=== PATIENT | female | born 1960 | race Caucasian/White ===

== ENCOUNTER 2016-05-07 06:23 | Day surgery (SDC) | payer BC ==
[2016-05-05 16:44] LABS: Basophils # (auto) 0 uL; Basophils % (auto) 0.3 % (0.0-2.0); Eosinophils # (auto) 0.2 uL; Eosinophils % (auto) 2.4 % (0.0-7.0); Hematocrit 38.2 % (36.0-46.0); Hemoglobin 12.4 g/dL (12.2-16.2); Lymphocytes # (auto) 1.4 uL; Lymphocytes % (auto) 20.1 % (10.0-50.0); Mean Corpuscular Hemoglobin 27.8 pg (28.0-32.0); Mean Corpuscular Hgb Conc. 32.5 g/dL (32.0-36.0); Mean Corpuscular Volume 85.5 fL (80.0-100.0); Mean Platelet Volume 7.3 fL (7.4-10.4); Monocytes # (auto) 0.5 uL; Monocytes % (auto) 7.8 % (0.0-12.0); Neutrophils # (auto) 4.7 uL; Neutrophils % (auto) 69.4 % (37.0-80.0); Platelet Count (auto) 376 10^3/uL (140-450); Red Cell Distribution Width 13.4 % (11.6-16.0); White Blood Cell 6.8 10^3/uL (4.4-10.8)
[2016-05-05 16:59] LABS: Urine Bilirubin Negative (Negative); Urine Blood Negative /uL (Negative); Urine Color Yellow (Yellow); Urine Glucose Normal (Normal); Urine Ketone Negative (Negative); Urine Mucus FEW (None Seen); Urine Nitrite Negative (Negative); Urine RBC 4 /hpf (0 - 4); Urine Squamous Epithelial Cell MOD /hpf (<5); Urine Urobilinogen Normal (Negative)
[2016-05-05 17:09] LABS: INR 0.97 (0.9-1.15); Partial Thromboplastin Time 27.1 sec (22.64-33.71)
[2016-05-05 17:18] LABS: Albumin 3.8 g/dL (3.4-5.0); BUN/Creatinine Ratio 18.3; Bilirubin, Total 0.2 mg/dL (0.2-1.0); Calcium 8.8 mg/dL (8.5-10.1); Potassium 3.6 mmol/L (3.5-5.1); Total Protein 7.4 g/dL (6.4-8.2)
[~2016-05-07] VITALS: Ht 162.6 cm; Wt 75.7 kg
[~2016-05-07 06:23] MED LIST: LOSA25TA9 PO; METF-312 PO; SIMV-8 PO; THYR30TA PO
[2016-05-07] MEDS ORDERED: ceFAZolin 1GM/50ML D5W 50 ML IV ONE (06:31)
[2016-05-07] MEDS ORDERED: ceFAZolin 1GM VL ONE (06:43)
[2016-05-07] MEDS ORDERED: LIDOCAINE W/ EPINEPHRINE 1 % INJ 30ML ONE (06:43)
[2016-05-07] MEDS ORDERED: BUPIVACAINE 0.25% INJ 50ML VIAL ONE (06:44)
[2016-05-07] MEDS ORDERED: VASOPRESSIN 20 UNIT/ML ONE (06:44)
[2016-05-07] MEDS ORDERED: GELATIN 1 SPONGE SIZE 100 TOP ONE (06:44)
[2016-05-07] MEDS ORDERED: CONJ ESTROGENS 0.625MG/GM VAG CRM 30GM PV ONE (06:44)
[2016-05-07] MEDS ORDERED: fentaNYL CITRATE 100 MCG/2 ML VL ONE (07:36)
[2016-05-07] MEDS ORDERED: PROPOFOL 10 MG/ML 20 ML IV ONE (07:36)
[2016-05-07] MEDS ORDERED: MIDAZOLAM HCL 1MG/1ML-2 ML VIAL ONE (07:36)
[2016-05-07] MEDS ORDERED: ROCURONIUM 10MG/ML 10ML VIAL IV ONE (07:36)
[2016-05-07] MEDS ORDERED: LIDOCAINE 1% HCL (LOCAL ANESTH.) INJ 20ML MDV ONE (07:53)
[2016-05-07] MEDS ORDERED: hydrALAZINE HCL 20 MG/ML VL IV PRN (09:00)
[2016-05-07] MEDS: HYDROmorphone HCL 2 MG/ML VL IV PRN ×4 (09:00→09:30)
[2016-05-07] MEDS ORDERED: ePHEDrine SULFATE 50 MG/ML AMP IV PRN (09:00)
[2016-05-07] MEDS ORDERED: ONDANSETRON HCL 4 MG/2 ML VIAL IV ONE (09:00)
[2016-05-07] MEDS ORDERED: KETOROLAC TROMETH 30 MG/ML 1ML VIAL ONE (09:35)
[2016-05-07 10:10] VITALS: BP 99/67
== END 2016-05-07 10:10 | disposition home or self-care (01) ==
LOC: SUR 06:23
PROVIDERS: ATTEND Obstetrics & Gynecology
DX: N81.10 Cystocele, unspecified (principal); N95.2 Postmenopausal atrophic vaginitis; N89.8 Other specified noninflammatory disorders of vagina; E11.9 Type 2 diabetes mellitus without complications; K21.9 Gastro-esophageal reflux disease without esophagitis; E03.9 Hypothyroidism, unspecified; I10 Essential (primary) hypertension; Z90.49 Acquired absence of other specified parts of digestive tract
CPT/HCPCS: 36415; 57106; 57240; 57288; 80053; 81001; 82962; 85025; 85610; 85730; 87086; 88302; C1771; J0690; J1170; J1885; J2001; J2250; J2405; J2704; J3010; J3490; 85049

== ENCOUNTER 2016-05-08 16:00 | Emergency (ER) | payer BC ==
[~2016-05-08] VITALS: Ht 162.6 cm; Wt 74.4 kg
[2016-05-08 16:20] VITALS: BP 109/61
== END 2016-05-08 16:30 | disposition left against medical advice (07) ==
LOC: ER 16:06
DX: Z76.1 Encounter for health supervision and care of foundling (principal); Z48.01 Encounter for change or removal of surgical wound dressing; Z53.21 Procedure and treatment not carried out due to patient leaving prior to being seen by health care provider